=== PATIENT | female | born 1935 | race Caucasian/White ===

== ENCOUNTER → 2016-07-06 | Outpatient (CLI) | payer MEDICARE, BC ==
[2013-09-28 10:47] VITALS: BP 109/57
[~2016-07-06] MED LIST: CLOP75TA27 PO; IOHEXOL 350 MG/ML 100 ML VIAL. IV ONE
[2016-07-06 12:41] LABS: CREATININE 0.8 mg/dL (0.6-1.0); GFR 68.8
--- NOTE | 2016-07-06 14:06 | RAD ---
CT angiography of the neck with intravenous contrast History: Left carotid stenosis. Comparison: None. Technique: After administration of intravenous contrast, 75 mL Omnipaque 350, helical CT angiogram of the neck was performed. Axial 2-D reconstructions were obtained. Rotating 3D volume rendered reconstructions of the neck arteries were also obtained. One or more of the following individualized dose reduction techniques were utilized for the study: Automated exposure control Adjustment of mA and/or kV according to patient's size Use of iterative reconstruction technique. Findings: Conventional three-vessel aortic arch is seen. Cervical portions of both vertebral arteries are patent. No vertebral arterial stenosis is seen. Right brachiocephalic artery is patent. Right common carotid artery is patent without significant stenosis. The right carotid bulb demonstrates mild calcified and noncalcified plaquing, but no hemodynamically significant right internal carotid artery stenosis is identified. Origin of the right external carotid artery demonstrates approximately 30% luminal diameter stenosis. Left common carotid artery is patent. The left carotid bulb demonstrates presence of both calcified and noncalcified plaquing. Origin of the left internal carotid artery at the carotid bulb demonstrates approximately 80% focal luminal diameter stenosis. Left external carotid artery demonstrates approximately 30% luminal diameter stenosis. Thyroid appears symmetric. No neck lymphadenopathy is seen. Bilateral parotid and submandibular glands appear symmetric. Airway is patent. Degenerative changes are present in the cervical spine. Bilateral maxillary sinus disease is seen including left maxillary sinus mucus retention cyst. Images of the upper chest demonstrate bilateral silicone breast implants with appearance suggesting bilateral intracapsular implant rupture (linguini sign). Impression: 1. Origin of left internal carotid artery demonstrates approximately 8% focal luminal diameter stenosis from calcified and noncalcified plaquing. 2. No hemodynamically significant right internal carotid artery stenosis. Estimation of carotid stenosis was made according to NASCET methodology.
--- NOTE | 2016-07-08 12:20 | CARD ---
APPROVED REPORT EXAM: Two-dimensional and M-mode echocardiogram with Doppler and color Doppler. Other Information Quality : Good INDICATION Cardiac Disease: CAD Sick Sinus Syndrome/Pacemaker 2D DIMENSIONS RVDd2.3 (2.9-3.5cm)Left Atrium(2D)2.8 (1.6-4.0cm) IVSd1.2 (0.7-1.1cm)Aortic Root(2D)2.3 (2.0-3.7cm) LVDd4.0 (3.9-5.9cm)LVOT Diameter1.9 (1.8-2.4cm) PWd1.1 (0.7-1.1cm)LVDs2.9 (2.5-4.0cm) FS (%) 27.0 %SV38.0 ml LVEF(%)55.0 (>50%) Aortic Valve AoV Peak Raul.130.4cm/sAoV VTI31.5cm AO Peak GR.6.8mmHgLVOT Peak Raul.97.0cm/s LVOT VTI 24.56cmAO Mean GR.4mmHg SAHRA (VMAX)2.05ut4ZNQ (VTI)2.22cm2 AI P 1/2 [id number] Mitral Valve MV E Aeidfhix68.5cm/sMV DECEL BRHP423fj MV A Laszrxbw21.8cm/sMV WHN04fw E/A Ratio0.9MVA (PHT)3.90cm2 TDI E/Lateral E'11.8E/Medial E'14.9 Tricuspid Valve TR P. Ceyfucxn935ms/sRAP SKMQOHQL6vcCp TR Peak Gr.15fgChEYUV74ayTq Pulmonary Vein S1 Bksdhmhl37.0cm/sD2 Zoussztv86.8cm/s PVa [id number] LEFT VENTRICLE The left ventricle is normal size. There is mild concentric left ventricular hypertrophy. The left ve ntricular systolic function is normal and the ejection fraction is within normal range. The Ejection Fraction is 55-60%. There is normal LV segmental wall motion. Transmitral Doppler flow pattern is Gra de I-abnormal relaxation pattern. RIGHT VENTRICLE The right ventricle is normal size. The right ventricular systolic function is normal. There is a pac emaker lead in the RV/RA ATRIA The left atrium size is normal. The right atrium size is normal. The interatrial septum is intact wit h no evidence for an atrial septal defect or patent foramen ovale as noted on 2-D or Doppler imaging. AORTIC VALVE The aortic valve is sclerotic but opens well. Doppler and Color Flow revealed mild aortic regurgitati on. There is no significant aortic valvular stenosis. MITRAL VALVE The mitral valve is normal in structure and function. There is no evidence of mitral valve prolapse. There is no mitral valve stenosis. Doppler and Color-flow revealed trace to mild mitral regurgitation . TRICUSPID VALVE The tricuspid valve is normal in structure and function. Doppler and Color Flow revealed trace to mil d tricuspid regurgitation. The PA pressure was estimated at 27 mmHg. There is no tricuspid valve sten osis. PULMONIC VALVE Doppler and Color Flow revealed trace pulmonic valvular regurgitation. There is no pulmonic valvular stenosis. GREAT VESSELS The aortic root is normal in size. The ascending aorta is normal in size. The IVC is normal in size a nd collapses >50% with inspiration. PERICARDIAL EFFUSION There is no evidence of significant pericardial effusion. Critical Notification Critical Value: No <Conclusion> The left ventricular systolic function is normal and the ejection fraction is within normal range. Th e Ejection Fraction is 55-60%. There is normal LV segmental wall motion. There is a pacemaker lead in the RV/RA Doppler and Color Flow revealed mild aortic regurgitation.
== END ==
LOC: CT 11:40
PROVIDERS: ATTEND Internal Medicine Cardiovascular Disease
DX: I49.5 Sick sinus syndrome (principal); I65.22 Occlusion and stenosis of left carotid artery; I25.10 Atherosclerotic heart disease of native coronary artery without angina pectoris; E78.5 Hyperlipidemia, unspecified; M48.06 Spinal stenosis, lumbar region
CPT/HCPCS: 36415; 70498; 80061; 82565; 93306; Q9967

== ENCOUNTER 2016-09-07 09:00 | Inpatient (IN) | payer MEDICARE ==
--- NOTE | 2016-09-06 17:48 | HP ---
ADMIT DATE: 09/07/2016 DIAGNOSIS: Asymptomatic carotid disease. HISTORY OF PRESENT ILLNESS: This 80-year-old female had a recent carotid Doppler showing minimal disease on the right carotid, but 70%-80% stenosis on the left. This was confirmed by a CT angio. She saw me in the office and options were discussed. She is admitted for an elective left carotid endarterectomy. MEDICATIONS: Include aspirin a day. ILLNESSES: Coronary artery disease, hyperlipidemia, pneumonia, asthma, cardiac arrhythmia and some varicose veins. PAST SURGICAL HISTORY: Pacemaker, coronary stents remotely. She has had some stomach surgery remotely, appendectomy remotely, partial hysterectomy remotely and bowel resection in 2016. SOCIAL HISTORY: Quit smoking more than 10 years ago. ALLERGIES: APPARENTLY SHE IS ALLERGIC TO ASPIRIN, so that she does not take aspirin. REVIEW OF SYSTEMS: Negative for diabetes and claudication. PHYSICAL EXAMINATION: GENERAL: Pleasant female, in no acute distress. NECK: 2+ carotids, no bruits, 2+ radial pulses. CARDIOVASCULAR: Heart rate is regular. Pacemaker in the left chest. CHEST: Clear. EXTREMITIES: 2+ popliteal pulses. NEUROLOGIC: Intact. IMPRESSION: Asymptomatic left carotid stenosis. PLAN: Left carotid endarterectomy under cervical block anesthetic. The nature of the procedure and the risk of bleeding, stroke, nerve injury, recurrent disease and infection were explained and she is agreeable to proceed. PHUONG MCINTOSH MD DR: JACKLYN/aly JOB#: [id number] / [id number]
[2016-09-07] VITALS (8 sets, daily range): BP systolic 113–130; BP diastolic 56–60
[~2016-09-07] VITALS: Ht 160 cm; Wt 61.5 kg
[~2016-09-07 09:00] MED LIST changes: -CLOP75TA27 PO; +CLOP75TA57 PO; +HEPARIN SODIUM 5,000 UNIT in IV NORMAL SALINE 500ML BAG 500 ML IRR ONE; -IOHEXOL 350 MG/ML 100 ML VIAL. IV ONE; +IV RINGERS,LACTATED 1000ML 1,000 ML IV SCH; +LIDOCAINE 1% 1 ML SYRINGE. ID PRN; +LIDOCAINE 1% 20 ML VIAL. ONE; +ONDANSETRON PF 4 MG/2 ML VIAL. IV PRN; +PROCHLORPERAZINE 10 MG/2 ML VIAL. IV PRN; +PROTAMINE 50 MG/5 ML VIAL. IV ONE; +SURGICEL FIBRILLAR 1X2 EACH. ONE; +fentaNYL PF VIAL 100 MCG/2 ML VIAL IV PRN
[2016-09-07] MEDS ORDERED: MIDAZOLAM HCL/PF 2 MG/2 ML VIAL. ONE (10:19)
[2016-09-07] MEDS ORDERED: fentaNYL PF VIAL 100 MCG/2 ML VIAL ONE ×3 (10:19→12:35)
--- NOTE | 2016-09-07 10:21 | RAD ---
AP chest radiograph 09/07/2016 Indication: Preoperative evaluation. Comparison: None. Findings: Dual-lead left chest wall cardiac conduction of eyes. Cardiac and mediastinal silhouettes are within normal limits. No pleural effusion, pneumothorax or focal consolidation. Impression: No acute cardiopulmonary abnormality.
[2016-09-07] MEDS ORDERED: AMIO200T2 PO (10:24)
[2016-09-07] MEDS ORDERED: RIVA20TA2 PO (10:24)
--- NOTE | 2016-09-07 10:30 | EKG ---
[facility] [address] [place] [address] Test Date: 2016-09-07 Test Time: 10:04:34 Pat Name: LAUREN BOGGS Department: Room: [place] [address] Gender: F Gas Station Operator: : 1935 Requested By: PHUONG MCINTOSH Order Number: [id number] Reading MD: Lino Chávez Measurements Intervals [place] Rate: 60 P: 90 [place]: 254 QRS: -38 QRSD: 104 T: 80 QT: 452 QTc: 457 Interpretive Statements SINUS RHYTHM PROLONGED [place] INTERVAL ABNORMAL LEFT AXIS DEVIATION R-S TRANSITION ZONE IN V LEADS DISPLACED TO THE LEFT LEFT ANTERIOR FASCICULAR BLOCK ABNORMAL ECG RI6.01 Compared to ECG 10/21/2012 09:02:20 First degree AV block now present Left anterior fascicular block now present Myocardial infarct finding no longer present Electronically Signed On 09-07-2016 17:11:30 CDT by Lino Chávez
--- NOTE | 2016-09-07 10:30 | EKG ---
[facility] [address] [place] [address] Test Date: 2016-09-07 Test Time: 10:06:10 Pat Name: LAUREN BOGGS Department: Room: [place] [address] Gender: F Supervisor Speech: : 1935 Requested By: ALEX BRADSHAW Order Number: [id number] Reading MD: Lino Chávez Measurements Intervals [place] Rate: 60 P: 90 [place]: 250 QRS: -44 QRSD: 106 T: 91 QT: 456 QTc: 461 Interpretive Statements SINUS RHYTHM PROLONGED [place] INTERVAL ABNORMAL LEFT AXIS DEVIATION R-S TRANSITION ZONE IN V LEADS DISPLACED TO THE LEFT LEFT ANTERIOR FASCICULAR BLOCK ABNORMAL ECG RI6.01 Compared to ECG 10/21/2012 09:02:20 First degree AV block now present Left anterior fascicular block now present Myocardial infarct finding no longer present Electronically Signed On 09-07-2016 17:14:35 CDT by Lino Chávez
[2016-09-07] MEDS ORDERED: LIDOCAINE 1% Multi-Dose 20 ML VIAL. ONE (10:51)
[2016-09-07] MEDS ORDERED: BUPIVACAINE MPF 0.25% 30 ML VIAL. ONE (10:51)
[2016-09-07 10:57] LABS: BASO # 0.1 x10^3/uL (0.0-0.2); BASO % 1 % (0-3); EOS % 2 % (0-3); HEMATOCRIT 42.1 % (36.0-47.0); HEMOGLOBIN 14.8 g/dL (12.0-15.5); LYMPH # 1.8 x10^3/uL (1.0-4.8); LYMPH % 25 % (24-48); MEAN CORPUSCULAR HEMOGLOBIN 32 pg (25-35); MEAN CORPUSCULAR HGB CONC 35 g/dL (31-37); MEAN CORPUSCULAR VOLUME 91 fL (79-100); MONO % 8 % (0-9); NEUT % 65 % (31-73); PLATELET COUNT 187 x10^3/uL (140-400); RED BLOOD COUNT 4.62 x10^6/uL (3.50-5.40); WHITE BLOOD COUNT 7.1 x10^3/uL (4.0-11.0)
[2016-09-07 11:07] LABS: PROTHROMBIN TIME PATIENT 12.5 SEC (11.7-14.0)
[2016-09-07 11:08] LABS: CALCIUM 9.2 mg/dL (8.5-10.1); CREATININE 0.9 mg/dL (0.6-1.0); GFR 60.1; POTASSIUM 3.9 mmol/L (3.5-5.1)
[2016-09-07] MEDS: IV RINGERS,LACTATED 1000ML 1,000 ML IV SCH (11:10)
[2016-09-07] MEDS ORDERED: PROCHLORPERAZINE 10 MG/2 ML VIAL. IV PRN (11:15)
[2016-09-07] MEDS ORDERED: HYDROcodone/APAP 5/325MG 1 TAB TABLET PO PRN (11:15)
[2016-09-07] MEDS ORDERED: 0.9 % SODIUM CHLORIDE 10 ML DISP.SYRIN. IV PRN (11:15)
[2016-09-07] MEDS ORDERED: fentaNYL PF VIAL 250 MCG/5 ML VIAL ONE (11:15)
[2016-09-07] MEDS ORDERED: LABETALOL 20 MG/4 ML DISP.SYRIN. IVP PRN (11:15)
[2016-09-07] MEDS ORDERED: ONDANSETRON PF 4 MG/2 ML VIAL. IV PRN (11:15)
[2016-09-07] MEDS ORDERED: hydrALAZINE 20 MG/ML VIAL. IVP PRN (11:15)
[2016-09-07] MEDS ORDERED: MORPHINE SULFATE 2 MG/ML DISP.SYRIN. IV PRN (11:15)
[2016-09-07] MEDS ORDERED: HEPARIN for IV BOLUS 10,000 UNIT/10 ML VIAL. ONE (11:30)
--- NOTE | 2016-09-07 12:16 | PDOC ---
BRIEF OPERATIVE NOTE Date: Sep 07, 2016 Pre-Op Diagnosis Left carotid stenosis Post-Op Diagnosis same Procedure Performed Left carotid endarterectomy Surgeon Dr. Lovell Office Machine Servicer Apprentice Mary Lou Pearl NP Anesthesia Type: Regional Blood Loss 25cc Findings greater than 80% stenosis Complications none stable to PACU neurologically intact MARY LOU PEARL PUBLIC POLICY MEDIATOR Sep 07, 2016 12:16
[2016-09-07] MEDS: fentaNYL PF VIAL 100 MCG/2 ML VIAL IV PRN ×4 (12:22→13:04)
[2016-09-07] MEDS: ACETAMINOPHEN 325 MG TABLET. PO SCH ×2 (14:00→20:56)
[2016-09-07] MEDS ORDERED: THYR48.7 PO (14:10)
[2016-09-07] MEDS: HYDROcodone/APAP 5/325MG 1 TAB TABLET PO PRN ×3 (14:40→23:32)
--- NOTE | 2016-09-07 16:30 | OP ---
DATE OF SURGERY: 09/07/2016 PREOPERATIVE DIAGNOSIS: Left carotid stenosis. POSTOPERATIVE DIAGNOSIS: Left carotid stenosis. PROCEDURE PERFORMED: Left carotid endarterectomy, eversion technique. SURGEON: Dr. Roberth Mcintosh. REPEAT PHOTOCOMPOSING MACHINE OPERATOR: Angela Healy. ANESTHETIC: Cervical block plus 1% lidocaine. INDICATIONS: This is an 80-year-old female with progressive left carotid stenosis, now estimated to be 80+ percent minimal disease, right side. FINDINGS: At least an 80-90% stenosis of the left internal carotid artery. She tolerated crossclamping without neurological change. DESCRIPTION OF PROCEDURE: After cervical block anesthetic, prepping and draping, incision was made along the anterior border of the left sternocleidomastoid muscle, carried through platysma with cautery, bleeding controlled with the cautery. Blunt and sharp dissection used to identify the common carotid artery, which was dissected out, encircled with umbilical tape and Rumel tourniquet. Dissection was then continued cephalad, crossing veins divided between silk ties and Hemoclips. The bifurcation was infiltrated with lidocaine. The external carotid was dissected out, encircled with a Vesseloop. She was given 6000 units of heparin IV. After circulation time for 3 minutes, the external carotid artery Vesseloop was tightened and tacked down, the common was clamped. She had no change in her neurological status. The internal was dissected out well above plaque, it was clamped. The internal was transected, split posteromedially with the Palacio scissors. The common split anterolaterally. Eversion type endarterectomy done at the internal carotid artery, the plaque breaking off very cleanly with a nice end point and a few loose intimal fibers were picked off with forceps. Standard endarterectomy done at the common and external carotid arteries and plaque broke off cleanly in both directions here as well. Once the vessels were clean, heparin was irrigated in each. The internal was then reattached to common as a patch angioplasty using a running circumferential 6-0 Prolene stitch. Just prior to complete closure, forward bleeding is checked, back bleeding is checked, back bleeding is very good. The vessel was irrigated free of blood and air with heparinized saline solution and closure completed. The internal clamp was raised. Pressure was held across the orifice. The internal with forceps as the external carotid artery Vesseloop was released and the common carotid clamp released allowing flow initially to the external system. After several heartbeats, flow was allowed into the internal carotid artery. Minimal bleeding along the suture line. The wound was irrigated. Some wound edge bleeding controlled with cautery. A 7 mm Yehuda-Gould drain placed into the wound and brought through a separate stab incision. A fibular Surgicel packed around suture lines. Incision was then closed with a running 2-0 Vicryl for the platysma, subcuticular 4-0 Vicryl, Mastisol, Steri-Strips, sterile dressings were applied. The patient tolerated the procedure well and left the operating room in stable condition, neurologically intact. ESTIMATED BLOOD LOSS: 25 mL. ROBERTH MCINTOSH MD DR: JACKLYN/aly JOB#: [id number] / [id number]
[2016-09-08 03:05] VITALS: BP 135/64
--- NOTE | 2016-09-08 05:32 | ACF ---
Admission Forms Criteria CARDIOLOGY GRG Clinical Indications for Admission to Inpatient Care ( Place 'X' for any and all applicable criteria): Hospital admission is needed for appropriate care of the patient because of ANY ONE of the following (1): [ ] I. Hemodynamic instability as indicated by ALL of the following (1)(2)(3) (4)(5) [ ]a) Vital signs or other findings not as expected for chronic patient condition or baseline [ ]b) Instability indicated by ANY ONE of the following: [ ]i) Hypotension [ ]ii) Symptomatic Tachycardia unresponsive to treatment ( e.g., analgesia, fluids, sedation as indicated) [ ]iii) Inadequate perfusion indicated by ANY ONE of the following: [ ] 1) Lactic acidosis (> 2 mmol/L) [ ] 2) New abnormal capillary refill (> 3 seconds) [ ] 3) Reduced urine output [ ] 4) New altered mental status [ ]iv) Orthostatic vital sign changes unresponsive to treatment (e.g., fluids) [ ]v) IV inotropic or vasopressor medication required to maintain adequate blood pressure or perfusion [ ] II. Severe heart failure as indicated by ANY ONE of the following(17)(18) [ ]a) Respiratory distress [ ]b) Hypotension [ ]c) Anasarca (refractory to outpatient therapy) [ ]d) Cardiac arrhythmias of immediate concern [ ]e) Myocardial ischemia [ ] III. Cardiac arrhythmias or findings of immediate concern indicated by ANY ONE of the following (19)(20): [ ] a) Heart rhythms that are inherently dangerous or unstable indicated by ANY ONE of the following (21)(22)(23): [ ] i) Resuscitated ventricular fibrillation or cardiac arrest [ ] ii) Ventricular escape rhythm [ ] iii) Sustained ventricular tachycardia (30 seconds or more of ventricular rhythm at greater than 100 beats per minute) [ ] iv) Nonsustained ventricular tachycardia and ANY ONE of the following: [ ] 1) Suspected cardiac ischemia as cause or consequence of ventricular tachycardia [ ] 2) In setting of acute myocarditis [ ] b) Unstable cardiac conduction defects indicated by ANY ONE of the following(23)(24)(25) [ ] i) Type II second-degree atrioventricular block [ ]ii) Third-degree atrioventricular block [ ]iii) New-onset left bundle branch block with suspected myocardial ischemia [ ]c) Any heart rhythm and ANY ONE of the following (21)(22)(26)(27) (28) [ ] i) Continuous long-term ECG monitoring needed (e.g., initiation of drug requiring monitoring for more than 24 hours) [ ] ii) Patient has automatic implanted cardioverter defibrillator that is repeatedly firing, malfunctioning, or in need of immediate adjustment of settings beyond the scope of ambulatory or observation care [ ]d) Heart rhythms of concern due to ANY ONE of the following: [ ] i) Hypotension [ ] ii) Respiratory distress [ ] iii) Association with other significant symptoms (e.g., bradycardia with syncope or ongoing dizziness, supraventricular tachycardia with chest pain (14)(15)(17) [ ] IV. Monitoring for cardiac contusion beyond the scope of observation care needed [A](30)(31)(32) [ ] V. Surgical or device complication (e.g., valve replacement complication , pacemaker dysfunction) (35)(41)(44)(45)(46) [ ] . Inpatient palliative care needed. [B](49) Also use Inpatient Palliative Care Criteria [ ] VII. Nonbacterial thrombotic (marantic) endocarditis (36)(43)(47)(48) [X] VIII. Cardiology condition, symptom, or finding for which emergency and observation care has failed or are not considered appropriate. [ ] IX. Acute valvular disease requiring inpatient as indicated by ANY ONE of the following (41) [ ]a) Acute valvular regurgitation (42) [ ]b) Noninfectious valvulitis (43) [ ]c) Obstructive valve thrombosis [ ]d) Paravalvular leak [ ]e) Other significant valvular disorder remaining after emergency or observation level of care (as appropriate) [ ]X. Pericardial disease requiring inpatient treatment as indicated by ANY ONE of the following (33)(34)(35)(36)(37) [ ]a) Suspected tamponade (38)(39)(40) [ ]b) Hemopericardium [ ]c) Other significant pericardial disorder remaining after emergency or observation level of care (as appropriate) [ ] XI. Cardiac ischemia beyond scope of emergency and observation care. [ ] XII. Hypertension requiring inpatient treatment as indicated by ANY ONE of the following (6)(7)(8) [ ]a) SBP greater than 220 mm Hg or DBP greater than 120 mmHg despite treatment [ ]b) SBP greater than 140 mm Hg or DBP greater than 100 mm Hg with evidence of acute end organ damage as indicated by ANY ONE of the following [ ] i) Encephalopathy [ ] ii) Acute renal failure as indicated by new onset of ANY ONE of the following (9)(10)(11)(12)(13) [ ]1) 3-fold rise in serum creatinine from baseline [ ]2) Serum creatinine greater than 4 mg/dL ( 354 micromoles/L) with acute rise greater than 0.5 mg/dL (44.2 micromoles/L) [ ]3) Reduction of more than 75% in estimated glomerular filtration rate from baseline [ ]4) Estimated glomerular filtration rate less than 35 mL/min/1.73m2 (0.59 mL/sec/1.73m2) in child up to 18 years of age [ ]5) Cessation of urine output indicated by ALL of the following [ ]A. Adequate volume status [ ]B. Inadequate urine output as indicated by ANY ONE of the following [ ]a. Urine output less than 0.3 mL/kg/hr for 24 hours [ ]b. Anuria (urine output less than 0.1 mL/kg/hr) for 12 hours [ ] iii) Aortic dissection [ ] iv) Myocardial Ischemia [ ] v) Left ventricular heart failure [ ]vi) Retinal Hemorrhage [ ]vii) Other significant finding [ ]c) Hypertension in child requiring inpatient treatment as indicated by ALL of the following(14)(15)(16) [ ] i) Outpatient treatment not effective, not available, or not appropriate [ ]ii) SBP or DBP greater than 95th percentile for age [ ]iii) Evidence of acute end organ damage as indicated by ANY ONE of the following [ ]1) Altered mental status [ ]2) Acute renal failure as indicated by new onset of ANY ONE of the following(9)(10)(11)(12)(13) [ ]A. 3-fold rise in serum creatinine from baseline [ ]B. Serum creatinine greater than 4 mg/dL (354 micromoles/L) with acute rise greater than 0.5 mg/dL (44.2 micromoles/L) [ ]C. Reduction of more than 75% in estimated glomerular filtration rate from baseline [ ]D. Estimated glomerular filtration rate less than 35 mL/min/1.73m2 (0.59 mL/sec/1.73m2) in child up to 18 years of age [ ]E. Cessation of urine output indicated by ALL of the following [ ]a. Adequate volume status [ ]b. Inadequate urine output as indicated by ANY ONE of the following [ ]i) Urine output less than 0.3 mL/kg/hr for 24 hours [ ]ii) Anuria ( urine output less than 0.1 mL/kg/hr) for 12 hours [ ]3) Severe headache [ ]4) Visual disturbance [ ]5) Retinal hemorrhage [ ]6) Other significant finding [ ]XIII. Complications of transplanted heart indicated by ANY ONE of the following(61): [ ]a) Acute graft rejection requiring inpatient management (eg, intravenous immunosuppression)(62)(63) [ ]b) Acute graft heart failure indicated by ANY ONE of the following(64): [ ]i) Hemodynamic instability [ ]ii) Cardiac arrhythmias of immediate concern [ ]iii) Pulmonary edema that is very severe (eg, mechanical ventilation needed, imminent or likely, need for 100% oxygen to keep oxygen saturation above 90%) [ ]iv) Pulmonary edema that is persistent as indicated by ALL of the following: [ ]1) New need for oxygen therapy to keep oxygen saturation above 90% (or increased FiO2 need from baseline) [ ]2) Has not improved sufficiently with emergency department or observation care IV diuretics or other heart failure treatments[E] [ ]v) Altered mental status that is severe or persistent [ ]vi) Increased creatinine (new on laboratory test) with reduction of more than 50% in estimated glomerular filtration rate from baseline [ ]vii) Progressively (ongoing) rising creatinine (known from past laboratory test) with reduction of more than 25% in estimated glomerular filtration rate from baseline [ ]viii) Acute renal failure [ ]ix) Acute peripheral ischemia (eg, examination shows pulseless, cool, mottled, or cyanotic extremity) [ ]x) Pulmonary artery catheter monitoring needed [ ]xi) Other sign or symptom of heart failure requiring inpatient treatment (ie, too severe or not responsive to outpatient and observation care treatment) [ ]c) Infection requiring inpatient management (eg, Hemodynamic instability, need for intravenous antimicrobial treatment)(66)(67)(68)(69)(70) [ ]d) Cardiac allograft vasculopathy requiring inpatient management ( eg evidence of cardiac ischemia)(71) [ ]e) Other complication of transplanted heart (eg, stroke, severe pulmonary hypertension, severe valvular dysfunction) requiring inpatient management(72) The original [facility] content created by [facility] has been revised. The portions of the content which have been revised are identified through the use of italic text or in bold, and [facility] has neither reviewed nor approved the modified material. All other unmodified content is copyright [facility]. Please see references footnoted in the original [facility] edition 2016 Admission Criteria Met?: Yes SCARLET LAWRENCE Sep 08, 2016 05:32
[2016-09-08] MEDS: ACETAMINOPHEN 325 MG TABLET. PO SCH (06:28)
[2016-09-08 07:00] VITALS: BP 92/51
[2016-09-08] MEDS: IV RINGERS,LACTATED 1000ML 1,000 ML IV SCH (07:10)
--- NOTE | 2016-09-08 07:14 | PDOC ---
Provider Note Provider Note POD # 1 Comfortable Post op lt CEA Incision clean, drain pulled Neuro intact Imp: Stable and doing well Plan: Discharge home PHUONG MCINTOSH MD Sep 08, 2016 07:14
--- NOTE | 2016-09-08 07:17 | DISCH ---
DISCHARGE INSTRUCTIONS Condition on Discharge Condition on Discharge: Stable Activity After Discharge Activity Instructions for Disc: No restrictions Diet after Discharge Diet after Discharge: Cardiac Wound Incision Care Wound/Incision Care: Ice to area for comfort, May get incision wet Follow-Up Follow up with: Liliya [phone] in 2-3 weeks PHUONG MCINTOSH MD Sep 08, 2016 07:17
--- NOTE | 2016-09-08 07:46 | DS ---
DATE OF DISCHARGE: 09/08/2016 PRINCIPAL DIAGNOSIS: Left carotid stenosis. SECONDARY DIAGNOSES: Atrial fibrillation and hypercholesterolemia. PROCEDURES: On 09/07/2016, a left carotid endarterectomy, eversion technique. HISTORY OF PRESENT ILLNESS: This is an 80-year-old female with progressive left carotid stenosis seen on carotid Doppler. She had about an 80%-90% stenosis of left side, less than 50% on the right, shows as atrial fibrillation. She stopped her anticoagulant 2 days prior to surgery. HOSPITAL COURSE: On the day of admission, she underwent a left carotid endarterectomy under cervical block anesthetic using eversion technique. She remained neurologically intact during the procedure and overnight. The following morning, she was awake and alert. Vital signs are stable. Off oxygen, her saturation is 94%. She was neurologically intact with minimal swelling in the neck. The drain was removed. She was neurologically intact and discharged home stable to be discharged home. DISPOSITION: Home. MEDICATIONS: See reconciliation list. DISCHARGE INSTRUCTION: Resume her anticoagulation today, may shower and get incision wet. Cardiac diet. Follow up in my office 2-3 weeks, resume usual activities, but no driving for several days. PHUONG MCINOTSH MD DR: JACKLYN/aly JOB#: [id number] / [id number]
[2016-09-08] MEDS ORDERED: AMIODARONE HCL 200 MG TABLET. PO SCH (09:00)
== END 2016-09-08 10:28 | disposition home or self-care (01) | DRG 39 ==
LOC: OPSVCIP 09:00 → 2 SOUTH 13:53
PROVIDERS: ADMIT Specialist; ATTEND Specialist
PROC: 03CN0ZZ Extirpation of Matter from Left External Carotid Artery, Open Approach (ICD-10-PCS; 2016-09-07)
PROC: 03CL0ZZ Extirpation of Matter from Left Internal Carotid Artery, Open Approach (ICD-10-PCS; 2016-09-07)
PROC: 03UL0KZ Supplement Left Internal Carotid Artery with Nonautologous Tissue Substitute, Open Approach (ICD-10-PCS; 2016-09-07)
PROC: 03CJ0ZZ Extirpation of Matter from Left Common Carotid Artery, Open Approach (ICD-10-PCS; principal; 2016-09-07 10:45)
DX: I65.22 Occlusion and stenosis of left carotid artery (principal); E78.00 Pure hypercholesterolemia, unspecified; I48.91 Unspecified atrial fibrillation; Z90.49 Acquired absence of other specified parts of digestive tract; Z95.5 Presence of coronary angioplasty implant and graft
CPT/HCPCS: 36415; 71010; 80048; 85027; 85610; 85730; 93005; C1769; J0690; J1644; J2250; J2405; J3010; J3490; J7040; J7120

== ENCOUNTER → 2017-06-24 | Outpatient (CLI) | payer MEDICARE | END | disposition home or self-care (01) | LOC: ECHO 07:33 | DX: I25.10 Atherosclerotic heart disease of native coronary artery without angina pectoris (principal); I08.3 Combined rheumatic disorders of mitral, aortic and tricuspid valves; I27.20 Pulmonary hypertension, unspecified; E78.5 Hyperlipidemia, unspecified; E78.00 Pure hypercholesterolemia, unspecified | CPT/HCPCS: 93306 ==

== ENCOUNTER → 2017-06-24 | Outpatient (CLI) | payer MEDICARE, BC ==
[2017-06-24] MEDS: REGADENOSON 0.4 MG/5 ML DISP.SYRIN. IV (10:18)
== END | disposition home or self-care (01) ==
LOC: NM 07:49
DX: I25.10 Atherosclerotic heart disease of native coronary artery without angina pectoris (principal); I65.23 Occlusion and stenosis of bilateral carotid arteries; E78.5 Hyperlipidemia, unspecified; E78.00 Pure hypercholesterolemia, unspecified
CPT/HCPCS: 78452; 93017; 93880; 96374; 96375; 96376; A9500; J2785

== ENCOUNTER → 2018-10-03 | Outpatient (CLI) | payer MEDICARE, BC ==
[~2018-10-03] MED LIST changes: +AMIO200T4 PO; -HEPARIN SODIUM 5,000 UNIT in IV NORMAL SALINE 500ML BAG 500 ML IRR ONE; -IV RINGERS,LACTATED 1000ML 1,000 ML IV SCH; -LIDOCAINE 1% 1 ML SYRINGE. ID PRN; -LIDOCAINE 1% 20 ML VIAL. ONE; -ONDANSETRON PF 4 MG/2 ML VIAL. IV PRN; -PROCHLORPERAZINE 10 MG/2 ML VIAL. IV PRN; -PROTAMINE 50 MG/5 ML VIAL. IV ONE; +RIVA20TA2 PO; -SURGICEL FIBRILLAR 1X2 EACH. ONE; +THYR48.7 PO; -fentaNYL PF VIAL 100 MCG/2 ML VIAL IV PRN
--- NOTE | 2018-10-03 12:45 | CARD ---
MR#: [id number] Date of Study: 10/03/2018 Ordering Physician: MARGARITA ROSARIO, Referring Physician: MARGARITA ROSARIO, Tech: Daysi Velazquez RDCS APPROVED REPORT EXAM: Two-dimensional and M-mode echocardiogram with Doppler and color Doppler. Other Information Quality : AverageHR: 60bpm Rhythm : Pacemaker INDICATION CAD 2D DIMENSIONS RVDd2.9 (2.9-3.5cm)Left Atrium(2D)2.9 (1.6-4.0cm) IVSd1.1 (0.7-1.1cm)Aortic Root(2D)2.9 (2.0-3.7cm) LVDd4.1 (3.9-5.9cm)LVOT Diameter1.9 (1.8-2.4cm) PWd1.1 (0.7-1.1cm)LVDs2.9 (2.5-4.0cm) FS (%) 27.7 %SV39.6 ml LVEF(%)54.3 (>50%) M-Mode DIMENSIONS Left Atrium(MM)2.55 (2.5-4.0cm)Aortic Root3.12 (2.2-3.7cm) Aortic Valve AoV Peak Raul.149.8cm/sAoV VTI35.5cm AO Peak GR.9.0mmHgLVOT Peak Raul.86.0cm/s AO Mean GR.5mmHgAVA (VMAX)1.67cm2 SAHRA (VTI)1.35oy3EH P 1/2 Pujs737yb Mitral Valve MV E Rvqhldnh21.8cm/sMV DECEL [id number] MV A Wfqwcvwg219.0cm/sE/A Ratio0.8 Pulmonary Valve PV Peak Dlblfaxo316.6cm/s Tricuspid Valve TR P. Lbwdcgsb957iw/sRAP GYRGRPZL8cgMx TR Peak Gr.33dmIeADVK18hdSd Pulmonary Vein S1 Zoitxxqr00.2cm/sD2 Rivrtdco63.1cm/s PVa kzychoof051llys LEFT VENTRICLE The left ventricle is normal size. There is borderline to mild concentric left ventricular hypertroph y. The left ventricular systolic function is normal and the ejection fraction is within normal range. The Ejection Fraction is 55-60%. Septal motion consistent with conduction abnormality. Transmitral D oppler flow pattern is Grade I-abnormal relaxation pattern. RIGHT VENTRICLE The right ventricle is normal size. There is normal right ventricular wall thickness. The right ventr icular systolic function is normal. Pacer noted in RV/RA. ATRIA The left atrium size is normal. The right atrium size is normal. The interatrial septum is intact wit h no evidence for an atrial septal defect or patent foramen ovale as noted on 2-D or Doppler imaging. AORTIC VALVE The aortic valve is normal in structure and function. The aortic valve is trileaflet. Doppler and Col or Flow revealed mild aortic regurgitation. There is no significant aortic valvular stenosis. There i s no aortic valvular vegetation. MITRAL VALVE The mitral valve is normal in structure and function. There is no evidence of mitral valve prolapse. There is no mitral valve stenosis. Doppler and Color-flow revealed trace mitral regurgitation. TRICUSPID VALVE The tricuspid valve is normal in structure and function. Doppler and Color Flow revealed trace tricus pid regurgitation. The PA pressure was estimated at 30 mmHg. There is no tricuspid valve prolapse or vegetation. There is no tricuspid valve stenosis. PULMONIC VALVE The pulmonic valve is not well visualized. GREAT VESSELS The aortic root is normal in size. The ascending aorta is normal in size. The IVC is normal in size a nd collapses >50% with inspiration. PERICARDIAL EFFUSION There is no evidence of significant pericardial effusion. Critical Notification Critical Value: No <Conclusion> The left ventricular systolic function is normal and the ejection fraction is within normal range. Th e Ejection Fraction is 55-60%. Septal motion consistent with conduction abnormality. Pacer noted in RV/RA. Signed by : Clovis Townsend, Electronically Approved : 10/03/2018 12:44:47
--- NOTE | 2018-10-03 18:44 | RAD ---
MR#: [id number] Date of Study: 10/03/2018 Ordering Physician: MARGARITA ROSARIO, Referring Physician: MARGARITA ROSARIO, Tech: David Du MBA, RDMS, RVT, RDCS, RTR APPROVED REPORT Patient Location: OUT-PATIENT Laterality:Bilateral Indications carotid stenosis Surgery/Intervention Endarterectomy: left Doppler Spectral Velocity Analysis Right Left pCCA 110/22 cm/spCCA 84/20 cm/s mCCA 85/19 cm/smCCA 88/19 cm/s dCCA 73/15 cm/sdCCA 96/24 cm/s Bulb 64/17 cm/sBulb 87/19 cm/s ECA 111/ cm/sECA 153/ cm/s pICA 57/15 cm/spICA 114/35 cm/s Willa 58/13 cm/smICA 111/37 cm/s dICA 69/19 cm/sdICA 81/28 cm/s Vert. 43/ cm/sVert. 63/ cm/s Subcl. 103/ cm/sSubcl. 83/ cm/s ICA/CCA 0.63ICA/CCA 1.36 Findings Grayscale images of the bilateral common carotid, external and internal carotid vessels reveals moder ate plaque at the level of the carotid bulb bilaterally. Based on color Doppler and spectral waveforms and velocities there is overall 0 to less than 50% sten osis involving the bilateral internal carotid arteries. The vertebral velocities are antegrade and within normal limits. The subclavian velocities are within normal limits. Normal ICA to CCA ratios bilaterally. Critical Notification Critical Value: No <Conclusion> 1. No significant carotid occlusive disease. Signed by : Clovis Townsend, Electronically Approved : 10/03/2018 18:43:59
== END | disposition home or self-care (01) ==
LOC: ECHO 09:37
PROVIDERS: ATTEND Internal Medicine Cardiovascular Disease
DX: I65.23 Occlusion and stenosis of bilateral carotid arteries (principal); I25.10 Atherosclerotic heart disease of native coronary artery without angina pectoris; Z95.0 Presence of cardiac pacemaker
CPT/HCPCS: 93306; 93880